=== PATIENT | female | born 1930 | race Caucasian/White ===

== ENCOUNTER → 2016-11-27 | Outpatient (REF) | payer MEDICARE ==
[2016-11-27 13:42] LABS: FERRITIN 43 NG/ML (8-252); PERCENT SATURATION 16.6 % (13.2-45.0); TOTAL IRON BINDING CAPACITY 314 UG/DL (250-450)
[2016-11-27 13:43] LABS: REASON FOR REVIEW COMPREHENSIVE REVIEW
[2016-11-27 13:50] LABS: ERYTHROCYTE SEDIMENTATION RATE 52 mm/hr (0-42)
[2016-11-29 13:51] LABS: ALBUMIN 3.75 GM/DL (3.29-5.55); ALBUMIN % 53.6 % (55.8-66.1); GAMMA GLOBULIN % 15.5 % (11.1-18.8)
== END ==
LOC: M LAB REF 12:43
PROVIDERS: ATTEND Internal Medicine Medical Oncology
DX: D64.9 Anemia, unspecified (principal)

== ENCOUNTER → 2017-05-15 | Outpatient (REF) | payer MEDICARE ==
[2017-05-15 13:34] LABS: HEMATOCRIT 30.5 % (36.0-47.0)
[2017-05-15 13:41] LABS: APPEARANCE, URINE CLEAR (CLEAR); BACTERIA, URINE AUTO NEGATIVE (NEGATIVE); BILIRUBIN, URINE AUTO NEGATIVE (NEGATIVE); BLOOD, URINE BLOOD NEGATIVE (NEGATIVE); COLOR, URINE YELLOW (YELLOW); GLUCOSE, URINE (UA) AUTO NEGATIVE (NEGATIVE); KETONE, URINE AUTO NEGATIVE (NEGATIVE); LEUKOCYTE ESTERASE, URINE AUTO NEGATIVE (NEGATIVE); NITRITE, URINE AUTO NEGATIVE (NEGATIVE); PROTEIN, URINE AUTO 1+ mg/dL (NEGATIVE); RBC, URINE AUTO 2 /HPF (0-3); SPECIFIC GRAVITY URINE AUTO 1.015 (1.002-1.035); SQUAMOUS EPITHELIAL CELL UR AU 1 /HPF (0-6); UROBILINOGEN, URINE AUTO 0.2 mg/dL (0.0-2.0); WBC, URINE AUTO 3 /HPF (0-3)
[2017-05-15 14:15] LABS: VITAMIN B12 LEVEL > 2000 PG/ML (247-911)
[2017-05-15 14:24] LABS: FERRITIN 25 NG/ML (8-252); IRON (FE) 83 UG/DL (50-170); PERCENT SATURATION 21.7 % (13.2-45.0); TOTAL IRON BINDING CAPACITY 382 UG/DL (250-450)
[2017-05-16 12:11] LABS: PRETREATED FOLATE FOR RBCFOL 16.7 NG/ML; RBC FOLATE 1149.8 NG/ML (280-791)
[2017-05-19 10:27] LABS: METHYLMALONIC ACID 205 nmol/L (0-378)
[2017-05-20 00:07] LABS: SOLUBLE TRANSFERRIN RECEPTOR 36.1 nmol/L (12.2-27.3)
== END ==
LOC: M LAB REF 13:11
DX: D64.9 Anemia, unspecified (principal)
CPT/HCPCS: 83550